=== PATIENT | female | born 1940 | race Caucasian/White ===

== ENCOUNTER 2021-02-10 17:53 | Inpatient (IN) | payer OTHER ==
[~2021-02-10] VITALS: Ht 172.7 cm; Wt 90.1 kg
[~2021-02-10 17:53] MED LIST: ADULT LOW DOSE81 MG PO; ALBUTEROL2.5 MG/3 M INH; ALPRAZOLAM0.5 MG PO; ANASTROZOLE1 MG PO; CEFADROXIL500 MG PO; COLACE100 MG PO; DICYCLOMINE HCL20 MG PO; FELODIPINE ER5 MG PO; HEMP OIL TOP; IBUPROFEN400 MG PO; IBUPROFEN600 MG PO; KLOR-CON 1010 MEQ PO; LASIX20 MG PO; LEVAQUIN750 MG PO; LIDOCAINE-PRILO30 GM TOP; LORATADINE10 MG PO; LORTAB 10-3251 EACH PO; LYRICA150 MG PO; MEDROL DOSEPAK 24 MG PO; METHENAMINE HIPP1 GM PO; NEURONTIN 300300 MG PO; NITROSTAT0.4 MG SL; NORCO 10-325 T1 EACH PO; ONDANSETRON HCL4 MG PO; PEPCID40 MG PO; POLYETHYLENE GL17 GM PO; PROAIR HFA8.5 GM INH; PROBIOTIC FORM1 EACH PO; PROTONIX 40 MG40 M1 PO; PROTONIX40 MG PO; SPIRIVA RESPIMAT4 GM INH; STIOLTO RESPIMAT INH; SYMBICORT 16010.2 GM INH; TRAMADOL HCL50 MG PO; VITAMIN C 500500 MG PO; ZOFRAN ODT 4 MG4 MG SL; ZOFRAN8 MG PO; ZOLOFT25 MG PO
[2021-02-10 18:51] LABS: HEMOGLOBIN 13.8 gm/dl (12.3-15.3); RED BLOOD COUNT 4.75 M/UL (4.00-5.10); WHITE BLOOD COUNT 10.5 K/UL (4.5-11.0)
[2021-02-10 19:05] LABS: BUN/CREATININE RATIO 19 (0-10)
[2021-02-11 04:40] LABS: HEMOGLOBIN 13.9 gm/dl (12.3-15.3); RED BLOOD COUNT 4.78 M/UL (4.00-5.10)
[2021-02-11 04:44] LABS: WHITE BLOOD COUNT 6.7 K/UL (4.5-11.0)
[2021-02-11 04:46] LABS: BUN/CREATININE RATIO 19 (0-10)
[2021-02-11] MEDS ORDERED: AZELASTINE137 MCG/0. (23:33)
[2021-02-11] MEDS ORDERED: FLONASE 0.05% N16 GM (23:38)
[2021-02-12 05:00] LABS: HEMOGLOBIN 13.1 gm/dl (12.3-15.3); RED BLOOD COUNT 4.57 M/UL (4.00-5.10)
[2021-02-12 05:02] LABS: WHITE BLOOD COUNT 10.6 K/UL (4.5-11.0)
[2021-02-13 04:38] LABS: HEMOGLOBIN 13.6 gm/dl (12.3-15.3); RED BLOOD COUNT 4.67 M/UL (4.00-5.10); WHITE BLOOD COUNT 8.2 K/UL (4.5-11.0)
[2021-02-14 04:33] LABS: HEMOGLOBIN 13.3 gm/dl (12.3-15.3); RED BLOOD COUNT 4.7 M/UL (4.00-5.10); WHITE BLOOD COUNT 8.3 K/UL (4.5-11.0)
[2021-02-14] MEDS ORDERED: BUDESONIDE0.5 MG/2 M NEB (10:35)
[2021-02-14] MEDS ORDERED: AMLODIPINE BESYL5 MG PO (10:35)
[2021-02-14] MEDS ORDERED: CARVEDILOL12.5 MG PO (10:35)
[2021-02-14] MEDS ORDERED: LEVALBUTER1.25 MG/3 NEB (10:35)
[2021-02-14] MEDS ORDERED: MEDROL4 MG PO (10:40)
[2021-02-14] MEDS ORDERED: AZITHROMYCIN250 MG PO (10:49)
[2021-02-14] MEDS ORDERED: LASIX40 MG PO (10:49)
[2021-02-14 15:15] LABS: ORGANISM ID Not indicated. (.); SPECIMEN SOURCE Urine (.); STREPTOCOCCUS PNEUMONIAE AG Negative (Negative)
== END 2021-02-14 16:20 | disposition home or self-care (01) | DRG 291 ==
LOC: ER1 17:53 → CCU 21:23 → MED SURG 4 21:23 → CDU 21:23 → CCU 23:03 → MED SURG 4 02-13 13:45
PROVIDERS: Emergency Medicine; Internal Medicine; Internal Medicine Pulmonary Disease; ADMIT Internal Medicine
PROC: 5A09457 Assistance with Respiratory Ventilation, 24-96 Consecutive Hours, Continuous Positive Airway Pressure (ICD-10-PCS; 2021-02-10)
PROC: B24BZZ4 Ultrasonography of Heart with Aorta, Transesophageal (ICD-10-PCS; principal; 2021-02-12)
DX: I11.0 Hypertensive heart disease with heart failure (principal); J96.21 Acute and chronic respiratory failure with hypoxia; J96.22 Acute and chronic respiratory failure with hypercapnia; E87.2 Acidosis; J44.1 Chronic obstructive pulmonary disease with (acute) exacerbation; N17.9 Acute kidney failure, unspecified; I50.33 Acute on chronic diastolic (congestive) heart failure; G89.4 Chronic pain syndrome; F41.9 Anxiety disorder, unspecified; E78.5 Hyperlipidemia, unspecified; Z96.652 Presence of left artificial knee joint; Z20.822 Contact with and (suspected) exposure to COVID-19; F32.9 Major depressive disorder, single episode, unspecified; I08.3 Combined rheumatic disorders of mitral, aortic and tricuspid valves; I16.0 Hypertensive urgency; F17.210 Nicotine dependence, cigarettes, uncomplicated; Z99.81 Dependence on supplemental oxygen; Z85.3 Personal history of malignant neoplasm of breast; Z98.42 Cataract extraction status, left eye; Z98.41 Cataract extraction status, right eye; Z90.49 Acquired absence of other specified parts of digestive tract; Z90.710 Acquired absence of both cervix and uterus; Z79.01 Long term (current) use of anticoagulants; Z95.2 Presence of prosthetic heart valve; Z82.49 Family history of ischemic heart disease and other diseases of the circulatory system; Z86.16 Personal history of COVID-19
CPT/HCPCS: 0240U; 36415; 36600; 71045; 74018; 80048; 80053; 81001; 82550; 82553; 82803; 83605; 83735; 83874; 83880; 84100; 84484; 85025; 85610; 85730; 86140; 87040; 87081; 87278; 87899; 93005; 94640; 94660; 94664; 94760; 96374; 96375; 99285; C9113; J0696; J1120; J1650; J1940; J2270; J2405; J2550; J2920; J2930

== ENCOUNTER 2021-05-07 14:43 | Inpatient (IN) | payer OTHER ==
[~2021-05-07] VITALS: Ht 167.6 cm; Wt 81.6 kg
[~2021-05-07 14:43] MED LIST changes: +AMLODIPINE BESYL5 MG PO; +AZITHROMYCIN250 MG PO; +BUDESONIDE0.5 MG/2 M NEB; +CARVEDILOL12.5 MG PO; +K-DUR TAB 10 M10 MEQ PO; -KLOR-CON 1010 MEQ PO; +LASIX40 MG PO; +LEVALBUTER1.25 MG/3 NEB; +MEDROL4 MG PO
[2021-05-07 17:13] LABS: HEMOGLOBIN 13.9 gm/dl (12.3-15.3); RED BLOOD COUNT 4.42 M/UL (4.00-5.10); WHITE BLOOD COUNT 10.1 K/UL (4.5-11.0)
[2021-05-08] MEDS ORDERED: PREDNISONE5 MG PO (09:43)
[2021-05-08] MEDS ORDERED: CLOPIDOGREL75 MG PO (09:44)
[2021-05-08] MEDS ORDERED: BUMETANIDE1 MG PO (09:50)
[2021-05-08] MEDS ORDERED: FELODIPINE ER5 MG PO (09:50)
[2021-05-08] MEDS ORDERED: INDERAL TAB 1010 MG PO (09:51)
[2021-05-08] MEDS ORDERED: IBUPROFEN600 MG PO (09:52)
[2021-05-08] MEDS ORDERED: LASIX20 MG PO (09:53)
[2021-05-08] MEDS ORDERED: HYDROCODON-ACE1 EAC2 PO (16:05)
[2021-05-08 23:14] LABS: HEMOGLOBIN 13.9 gm/dl (12.3-15.3); RED BLOOD COUNT 4.43 M/UL (4.00-5.10); WHITE BLOOD COUNT 7.6 K/UL (4.5-11.0)
[2021-05-09 07:57] LABS: HEMOGLOBIN 13.3 gm/dl (12.3-15.3); RED BLOOD COUNT 4.34 M/UL (4.00-5.10); WHITE BLOOD COUNT 6.9 K/UL (4.5-11.0)
--- NOTE | 2021-05-11 05:35 | NUR ---
SPOKE TO PHARMACY IN REGARDS TO PATIENT VANC TROUGH BEING 21.0- IT IS OKAY TO GIVE PER THE PHARMACIST
[2021-05-12] MEDS ORDERED: LISINOPRIL10 MG PO (12:27)
[2021-05-12] MEDS ORDERED: DOCUSATE SODIU100 MG PO (12:27)
[2021-05-12] MEDS ORDERED: CARVEDILOL12.5 MG PO (12:27)
[2021-05-12] MEDS ORDERED: BUMETANIDE1 MG PO (12:27)
[2021-05-12] MEDS ORDERED: LEVOFLOXACIN500 MG PO (12:27)
== END 2021-05-12 15:10 | disposition home or self-care (01) | DRG 690 ==
LOC: ER1 14:43 → CDU 19:07 → M/S 19:07
PROVIDERS: Physician Assistant; ADMIT Internal Medicine
DX: N30.00 Acute cystitis without hematuria (principal); L03.116 Cellulitis of left lower limb; L03.115 Cellulitis of right lower limb; R60.0 Localized edema; J44.9 Chronic obstructive pulmonary disease, unspecified; F41.9 Anxiety disorder, unspecified; I10 Essential (primary) hypertension; Z20.822 Contact with and (suspected) exposure to COVID-19; R09.82 Postnasal drip; K57.30 Diverticulosis of large intestine without perforation or abscess without bleeding; M54.5 Low back pain; I87.2 Venous insufficiency (chronic) (peripheral); S81.802A Unspecified open wound, left lower leg, initial encounter; Y92.238 Other place in hospital as the place of occurrence of the external cause; W22.8XXA Striking against or struck by other objects, initial encounter; E78.5 Hyperlipidemia, unspecified; K21.9 Gastro-esophageal reflux disease without esophagitis; K59.00 Constipation, unspecified; K44.9 Diaphragmatic hernia without obstruction or gangrene; Z96.652 Presence of left artificial knee joint; J34.89 Other specified disorders of nose and nasal sinuses; G47.33 Obstructive sleep apnea (adult) (pediatric); E66.9 Obesity, unspecified; Z90.49 Acquired absence of other specified parts of digestive tract; Z98.42 Cataract extraction status, left eye; Z98.41 Cataract extraction status, right eye; Z85.3 Personal history of malignant neoplasm of breast; Z99.81 Dependence on supplemental oxygen; Z90.710 Acquired absence of both cervix and uterus; Z95.2 Presence of prosthetic heart valve; Z83.2 Family history of diseases of the blood and blood-forming organs and certain disorders involving the immune mechanism; Z82.3 Family history of stroke; Z84.89 Family history of other specified conditions; Z87.891 Personal history of nicotine dependence; Z79.82 Long term (current) use of aspirin; Z79.899 Other long term (current) drug therapy; Z88.1 Allergy status to other antibiotic agents; Z90.722 Acquired absence of ovaries, bilateral; Z90.79 Acquired absence of other genital organ(s); Z68.29 Body mass index [BMI] 29.0-29.9, adult
CPT/HCPCS: 36415; 71045; 80048; 80053; 80202; 81001; 82962; 83605; 85025; 87040; 87045; 87046; 87086; 90714; 94640; 94664; 94760; 96374; 99284; J0295; J0696; J1650; J2543; J3370; J7070; U0002

== ENCOUNTER 2021-05-16 14:30 | Observation (INO) | payer OTHER ==
[~2021-05-16] VITALS: Ht 167.6 cm; Wt 88.5 kg
[~2021-05-16 14:30] MED LIST changes: +BUMETANIDE1 MG PO; +CLOPIDOGREL75 MG PO; +DOCUSATE SODIU100 MG PO; +HYDROCODON-ACE1 EAC2 PO; +INDERAL TAB 1010 MG PO; +LEVOFLOXACIN500 MG PO; +LISINOPRIL10 MG PO; +PREDNISONE5 MG PO
[2021-05-16 15:30] LABS: HEMOGLOBIN 12.4 gm/dl (12.3-15.3); RED BLOOD COUNT 4.11 M/UL (4.00-5.10); WHITE BLOOD COUNT 12.3 K/UL (4.5-11.0)
--- NOTE | 2021-05-17 19:50 | NUR ---
AT 1150, PT STATED SHE WAS IN PAIN AND THAT THE HYDROCODONE WAS NOT HELPING RELIEVE HER PAIN. PT REQUESTED ANOTHER MEDICATION. PT WAS INFORMED SHE HAD MORPHINE PRN. PT'S DAUGHTER STATED THAT SHE DID NOT NEED THE MORPHINE BECAUSE IT MADE HER LOOPY. I BROUGHT MYRON HAYNES INTO THE ROOM AFTER THE PT'S DAUGHTER JUST WALKED OUT. THE PT TOLD IVY THAT SHE WAS HURTING AND ALERT AND ORIENTED AND WANTED THE MORPHINE. ADVISED THE PT OF THE SIDE EFFECTS AND GAVE THE MORPHINE REQUESTED TO THE PT. CONTINUED TO MONITOR THE PT THROUGHOUT THE DAY AND PT IS DOING WELL WITH HER PAIN. CONTINUE TO MONITOR THE PT.
[2021-05-18 03:18] LABS: HEMOGLOBIN 11.7 gm/dl (12.3-15.3); RED BLOOD COUNT 3.79 M/UL (4.00-5.10); WHITE BLOOD COUNT 8.6 K/UL (4.5-11.0)
[2021-05-19 05:48] LABS: HEMOGLOBIN 11.6 gm/dl (12.3-15.3); RED BLOOD COUNT 3.79 M/UL (4.00-5.10); WHITE BLOOD COUNT 8.6 K/UL (4.5-11.0)
[2021-05-19] MEDS ORDERED: IPRAT-ALBUT 0.5-3 ML NEB (13:46)
[2021-05-19] MEDS ORDERED: BENTYL 10MG CAP10 MG PO (13:46)
[2021-05-19] MEDS ORDERED: HYDROCODON-ACE1 EAC2 PO ×2 (13:46→16:14)
== END 2021-05-19 15:11 | disposition home or self-care (01) ==
LOC: ER1 14:30 → M/S 21:43 → CDU 21:43 → M/S 22:43 → CDU 05-17 10:00 → M/S 05-17 10:00
PROVIDERS: Family Medicine; Internal Medicine; Internal Medicine Infectious Disease; Physician Assistant Medical; ADMIT Internal Medicine
DX: R07.9 Chest pain, unspecified (principal); R79.1 Abnormal coagulation profile; R77.8 Other specified abnormalities of plasma proteins; R10.13 Epigastric pain; J44.9 Chronic obstructive pulmonary disease, unspecified; J96.22 Acute and chronic respiratory failure with hypercapnia; N30.80 Other cystitis without hematuria; I11.0 Hypertensive heart disease with heart failure; I50.32 Chronic diastolic (congestive) heart failure; G89.4 Chronic pain syndrome; K29.70 Gastritis, unspecified, without bleeding; E86.0 Dehydration; E78.5 Hyperlipidemia, unspecified; F32.9 Major depressive disorder, single episode, unspecified; F41.9 Anxiety disorder, unspecified; I87.8 Other specified disorders of veins; I25.2 Old myocardial infarction; E66.9 Obesity, unspecified; Z68.31 Body mass index [BMI] 31.0-31.9, adult; Z90.710 Acquired absence of both cervix and uterus; Z20.822 Contact with and (suspected) exposure to COVID-19; Z99.81 Dependence on supplemental oxygen; Z95.2 Presence of prosthetic heart valve; Z85.3 Personal history of malignant neoplasm of breast; Z90.49 Acquired absence of other specified parts of digestive tract; Z86.19 Personal history of other infectious and parasitic diseases; Z96.652 Presence of left artificial knee joint; Z96.1 Presence of intraocular lens; Z98.1 Arthrodesis status; Z79.82 Long term (current) use of aspirin; Z79.2 Long term (current) use of antibiotics; Z79.52 Long term (current) use of systemic steroids; Z79.899 Other long term (current) drug therapy; Z87.891 Personal history of nicotine dependence; Z88.1 Allergy status to other antibiotic agents
CPT/HCPCS: 36415; 51701; 71045; 71275; 80048; 80053; 80061; 81001; 82550; 82553; 83605; 83690; 83735; 83874; 84484; 85025; 85379; 86140; 93005; 94640; 94664; 94760; 96372; 96374; 96375; 96376; 99285; G0378; J1335; J1650; J2270; Q9965; Q9967; U0002

== ENCOUNTER 2021-05-25 01:47 | Emergency (ER) | payer OTHER ==
[~2021-05-25 01:47] MED LIST changes: +BENTYL 10MG CAP10 MG PO; +IPRAT-ALBUT 0.5-3 ML NEB
[2021-05-25 02:44] LABS: HEMOGLOBIN 11.2 gm/dl (12.3-15.3); RED BLOOD COUNT 3.62 M/UL (4.00-5.10); WHITE BLOOD COUNT 8.7 K/UL (4.5-11.0)
[2021-05-25 03:08] LABS: BUN/CREATININE RATIO 28 (0-10)
== END 2021-05-25 06:30 | disposition home or self-care (01) ==
LOC: ER1 01:47
PROVIDERS: Family Medicine
DX: G89.4 Chronic pain syndrome (principal); J44.9 Chronic obstructive pulmonary disease, unspecified; I50.9 Heart failure, unspecified; Z85.3 Personal history of malignant neoplasm of breast
CPT/HCPCS: 72040; 80053; 82550; 82553; 83874; 84484; 85025; 93005; 96374; 96375; 99284; J1335; J2270; J2405

== ENCOUNTER 2021-05-25 13:55 | Observation (INO) | payer OTHER ==
[~2021-05-25] VITALS: Ht 167.6 cm; Wt 81.6 kg
[2021-05-25 16:04] LABS: HEMOGLOBIN 10.9 gm/dl (12.3-15.3); RED BLOOD COUNT 3.62 M/UL (4.00-5.10); WHITE BLOOD COUNT 9.1 K/UL (4.5-11.0)
[2021-05-25 16:07] LABS: BUN/CREATININE RATIO 29 (0-10)
[2021-05-26 04:35] LABS: HEMOGLOBIN 10.4 gm/dl (12.3-15.3); RED BLOOD COUNT 3.41 M/UL (4.00-5.10); WHITE BLOOD COUNT 8.7 K/UL (4.5-11.0)
== END 2021-05-27 13:59 | disposition home or self-care (01) ==
LOC: ER1 13:55 → CDU 16:55 → M/S 05-26 07:09
PROVIDERS: Emergency Medicine; Physician Assistant Medical; ADMIT Internal Medicine
DX: T40.2X1A Poisoning by other opioids, accidental (unintentional), initial encounter (principal); T40.421A Poisoning by tramadol, accidental (unintentional), initial encounter; G92 Toxic encephalopathy; J44.9 Chronic obstructive pulmonary disease, unspecified; Z95.4 Presence of other heart-valve replacement; E78.5 Hyperlipidemia, unspecified; N30.90 Cystitis, unspecified without hematuria; G89.4 Chronic pain syndrome; J96.11 Chronic respiratory failure with hypoxia; F32.9 Major depressive disorder, single episode, unspecified; F41.9 Anxiety disorder, unspecified; J96.12 Chronic respiratory failure with hypercapnia; I87.8 Other specified disorders of veins; N19 Unspecified kidney failure; I10 Essential (primary) hypertension; Z20.822 Contact with and (suspected) exposure to COVID-19
CPT/HCPCS: 36415; 36600; 70450; 71045; 80048; 80053; 80307; 81001; 82550; 82553; 82803; 83605; 83690; 83735; 83874; 83880; 84484; 85025; 85027; 87040; 94640; 94664; 94760; 96365; 96374; 96375; 99285; G0378; J2405; U0002

== ENCOUNTER 2021-06-24 22:25 | Observation (INO) | payer OTHER ==
[~2021-06-24] VITALS: Ht 170.2 cm; Wt 84.8 kg
[~2021-06-24 22:25] MED LIST changes: -K-DUR TAB 10 M10 MEQ PO
[2021-06-24 22:59] LABS: HEMOGLOBIN 11.1 gm/dl (12.3-15.3); RED BLOOD COUNT 3.71 M/UL (4.00-5.10); WHITE BLOOD COUNT 7.8 K/UL (4.5-11.0)
[2021-06-25] MEDS ORDERED: BACITRACIN28.4 GM TP (01:19)
[2021-06-25] MEDS ORDERED: PERCOCET 5/325 T1 EA PO (01:19)
[2021-06-25] MEDS ORDERED: SILVADENE CREAM20 GM TOP (01:19)
[2021-06-25] MEDS ORDERED: K-DUR TAB 20 M20 MEQ PO (10:18)
[2021-06-25] MEDS ORDERED: FLUVOXAMINE MAL50 MG PO (16:41)
[2021-06-25] MEDS ORDERED: PROPRANOLOL HCL10 MG PO (16:42)
[2021-06-25] MEDS ORDERED: NORVASC5 MG PO (16:44)
[2021-06-25] MEDS ORDERED: CLARITIN10 MG PO (16:45)
[2021-06-25] MEDS ORDERED: PLAVIX 75 MG TA75 MG PO (16:46)
[2021-06-25] MEDS ORDERED: IBU600 MG PO (16:47)
[2021-06-25] MEDS ORDERED: STIOLTO RESPIMAT4 GM INH (16:48)
[2021-06-25] MEDS ORDERED: LASIX40 MG PO (16:50)
[2021-06-25] MEDS ORDERED: AZELASTINE137 MCG/0. (23:33)
[2021-06-25] MEDS ORDERED: FLONASE 0.05% N16 GM (23:38)
[2021-06-26 08:57] LABS: HEMOGLOBIN 10.3 gm/dl (12.3-15.3); RED BLOOD COUNT 3.45 M/UL (4.00-5.10); WHITE BLOOD COUNT 8.6 K/UL (4.5-11.0)
[2021-06-28] MEDS ORDERED: ERYTHROMYCIN O3.5 GM EYERT (11:47)
[2021-06-28] MEDS ORDERED: KETOROLAC TROME10 ML EYERT (11:47)
== END 2021-06-28 14:51 | disposition home health service (06) ==
LOC: ER1 22:25 → CDU 06-25 06:34 → MED SURG 4 06-25 06:34
PROVIDERS: Family Medicine; ADMIT Internal Medicine
DX: T24.211A Burn of second degree of right thigh, initial encounter (principal); T26.01XA Burn of right eyelid and periocular area, initial encounter; T31.0 Burns involving less than 10% of body surface; I11.0 Hypertensive heart disease with heart failure; I50.32 Chronic diastolic (congestive) heart failure; J96.12 Chronic respiratory failure with hypercapnia; J44.9 Chronic obstructive pulmonary disease, unspecified; R07.9 Chest pain, unspecified; E78.5 Hyperlipidemia, unspecified; I95.9 Hypotension, unspecified; F41.9 Anxiety disorder, unspecified; F32.9 Major depressive disorder, single episode, unspecified; G89.4 Chronic pain syndrome; F17.200 Nicotine dependence, unspecified, uncomplicated; Z99.81 Dependence on supplemental oxygen; Z20.822 Contact with and (suspected) exposure to COVID-19; X08.8XXA Exposure to other specified smoke, fire and flames, initial encounter; Z79.02 Long term (current) use of antithrombotics/antiplatelets
CPT/HCPCS: 16020; 36600; 71045; 80048; 80053; 82550; 82553; 82803; 82805; 83735; 83874; 83880; 84484; 85025; 86140; 93005; 94640; 94664; 94760; 96372; 96374; 96375; 96376; 97116-GP-CQ; 97162; 97530-GP-CQ; 99285; G0378; J1650; J1885; J2270; J2310; J2405; J2920; U0002

== ENCOUNTER 2021-07-01 10:50 | Inpatient (IN) | payer OTHER ==
[~2021-07-01] VITALS: Ht 170.2 cm; Wt 82.6 kg
[~2021-07-01 10:50] MED LIST changes: +AZELASTINE137 MCG/0.; +BACITRACIN28.4 GM TP; +CLARITIN10 MG PO; +ERYTHROMYCIN O3.5 GM EYERT; +FLONASE 0.05% N16 GM; +FLUVOXAMINE MAL50 MG PO; +IBU600 MG PO; +K-DUR TAB 10 M10 MEQ PO; +KETOROLAC TROME10 ML EYERT; +NORVASC5 MG PO; +PERCOCET 5/325 T1 EA PO; +PLAVIX 75 MG TA75 MG PO; +PROPRANOLOL HCL10 MG PO; +SILVADENE CREAM20 GM TOP; +STIOLTO RESPIMAT4 GM INH
[2021-07-01 11:46] LABS: RED BLOOD COUNT 3.98 M/UL (4.00-5.10)
[2021-07-01 12:10] LABS: BUN/CREATININE RATIO 30 (0-10)
[2021-07-02 03:42] LABS: HEMOGLOBIN 11.7 gm/dl (12.3-15.3); RED BLOOD COUNT 3.91 M/UL (4.00-5.10); WHITE BLOOD COUNT 5.8 K/UL (4.5-11.0)
[2021-07-02 04:04] LABS: BUN/CREATININE RATIO 35 (0-10)
--- NOTE | 2021-07-03 00:25 | NUR ---
PATIENT CALLED OUT SAYING SHE IS HAVING CHEST PAIN. VITALS ARE FOLLOWS BP162/86 HR89 RR20 02 SAT IS 99%. RESPIRATORY AT BEDSIDE. NOTIFIED DR ENCARNACION OF PTS STATUS CHANGED. STATES HE WILL COME SEE PATIENT IN A FEW MINUTES.
[2021-07-03 07:56] LABS: HEMOGLOBIN 11.1 gm/dl (12.3-15.3); RED BLOOD COUNT 3.74 M/UL (4.00-5.10)
[2021-07-03 08:01] LABS: WHITE BLOOD COUNT 8.5 K/UL (4.5-11.0)
[2021-07-04 04:50] LABS: HEMOGLOBIN 11.3 gm/dl (12.3-15.3); RED BLOOD COUNT 3.78 M/UL (4.00-5.10)
[2021-07-04 05:05] LABS: WHITE BLOOD COUNT 5.9 K/UL (4.5-11.0)
[2021-07-05 03:15] LABS: HEMOGLOBIN 11.7 gm/dl (12.3-15.3); RED BLOOD COUNT 3.84 M/UL (4.00-5.10)
[2021-07-05 03:17] LABS: WHITE BLOOD COUNT 7.5 K/UL (4.5-11.0)
[2021-07-06 07:34] LABS: HEMOGLOBIN 11.6 gm/dl (12.3-15.3); RED BLOOD COUNT 3.88 M/UL (4.00-5.10); WHITE BLOOD COUNT 8.7 K/UL (4.5-11.0)
[2021-07-08 07:08] LABS: HEMOGLOBIN 12.5 gm/dl (12.3-15.3); RED BLOOD COUNT 4.1 M/UL (4.00-5.10)
[2021-07-08 07:10] LABS: WHITE BLOOD COUNT 12.7 K/UL (4.5-11.0)
[2021-07-08 07:26] LABS: BUN/CREATININE RATIO 30 (0-10)
[2021-07-09 06:46] LABS: HEMOGLOBIN 11.9 gm/dl (12.3-15.3); RED BLOOD COUNT 3.88 M/UL (4.00-5.10); WHITE BLOOD COUNT 14.1 K/UL (4.5-11.0)
[2021-07-09] MEDS ORDERED: ALPRAZOLAM0.5 MG PO (11:03)
[2021-07-09] MEDS ORDERED: PERCOCET 5/325 T1 EA PO (11:03)
[2021-07-09] MEDS ORDERED: MEDROL DOSEPAK 24 MG PO (11:03)
[2021-07-09] MEDS ORDERED: LEVOFLOXACIN750 MG PO (11:03)
[2021-07-09] MEDS ORDERED: POLYETHYLENE GL17 GM PO (11:03)
[2021-07-09] MEDS ORDERED: DOCUSATE SODIU100 MG PO (11:03)
[2021-07-09] MEDS ORDERED: BUDESONIDE0.5 MG/2 M NEB (11:03)
[2021-07-09] MEDS ORDERED: LISINOPRIL10 MG PO (11:03)
[2021-07-09] MEDS ORDERED: DIAMOX 250 MG250 MG PO (13:10)
--- NOTE | 2021-07-09 14:40 | NUR ---
REPORT CALLED TO MARY AT [facility].
== END 2021-07-09 15:21 | DRG 189 ==
LOC: ER1 10:50 → PROG CARE 14:08 → CDU 14:08 → PROG CARE 07-02 15:33 → M/S 07-07 18:41
PROVIDERS: Emergency Medicine; Internal Medicine; Physician Assistant; ADMIT Internal Medicine
DX: J96.21 Acute and chronic respiratory failure with hypoxia (principal); G93.41 Metabolic encephalopathy; J15.9 Unspecified bacterial pneumonia; Z20.822 Contact with and (suspected) exposure to COVID-19; C80.0 Disseminated malignant neoplasm, unspecified; J44.1 Chronic obstructive pulmonary disease with (acute) exacerbation; J44.0 Chronic obstructive pulmonary disease with (acute) lower respiratory infection; E87.3 Alkalosis; I50.32 Chronic diastolic (congestive) heart failure; Z68.41 Body mass index [BMI] 40.0-44.9, adult; J96.22 Acute and chronic respiratory failure with hypercapnia; E66.01 Morbid (severe) obesity due to excess calories; E78.5 Hyperlipidemia, unspecified; C50.919 Malignant neoplasm of unspecified site of unspecified female breast; F32.9 Major depressive disorder, single episode, unspecified; T24.012A Burn of unspecified degree of left thigh, initial encounter; T20.00XA Burn of unspecified degree of head, face, and neck, unspecified site, initial encounter; X08.8XXA Exposure to other specified smoke, fire and flames, initial encounter; F41.9 Anxiety disorder, unspecified; G89.4 Chronic pain syndrome; I87.8 Other specified disorders of veins; Z96.652 Presence of left artificial knee joint; F17.210 Nicotine dependence, cigarettes, uncomplicated; I11.0 Hypertensive heart disease with heart failure; R53.81 Other malaise; K59.00 Constipation, unspecified; Z79.01 Long term (current) use of anticoagulants; Z95.2 Presence of prosthetic heart valve; Z79.899 Other long term (current) drug therapy; Z87.440 Personal history of urinary (tract) infections; Z90.49 Acquired absence of other specified parts of digestive tract; Z90.710 Acquired absence of both cervix and uterus; Z98.42 Cataract extraction status, left eye; Z98.41 Cataract extraction status, right eye; Z98.1 Arthrodesis status; Z82.49 Family history of ischemic heart disease and other diseases of the circulatory system
CPT/HCPCS: 36415; 36600; 71045; 80048; 80053; 80307; 81001; 82550; 82553; 82803; 82962; 83735; 83874; 83880; 84484; 85025; 85027; 93005; 94640; 94660; 94760; 96374; 97110; 97110-GP-CQ; 97116-GP-CQ; 97162; 97166; 97530-GP-CQ; 99285; C9113; J0696; J1100; J1650; J1940; J2405; J2543; J2930; U0002